=== PATIENT | female | born 1985 | race Caucasian/White ===

== ENCOUNTER 2022-09-05 21:19 | Emergency (ER) | payer MEDICAID ==
[~2022-09-05] VITALS: Ht 162.6 cm; Wt 103.7 kg
[2022-09-05 23:07] VITALS: BP 139/94
[2022-09-06] MEDS ORDERED: DIPH25CA83 MT (01:36)
[2022-09-06] MEDS ORDERED: CEPH500T MT (01:36)
== END 2022-09-06 01:49 | disposition home or self-care (01) ==
LOC: ER 21:19
DX: L03.311 Cellulitis of abdominal wall (principal); B35.6 Tinea cruris
CPT/HCPCS: 99281

== ENCOUNTER 2024-09-29 18:40 | Emergency (ER) | payer MEDICAID, OTHER ==
[~2024-09-29] VITALS: Ht 162.6 cm; Wt 102.0 kg
[~2024-09-29 18:40] MED LIST: CEPH500T MT; DIPH25CA83 MT
[2024-09-29 19:03] VITALS: TEMP 36.72516; O2SAT 99
[2024-09-29 19:06] VITALS: BP 151/100; PULSE 95; RESP 18; TEMP 98.6; O2SAT 99
[2024-09-29 21:20] LABS: BASOPHILS % 1.2 % (0.0-2.0); EOSINOPHILS % 2.3 % (0.0-5.0); HEMATOCRIT. 43.6 % (36.0-48.0); HEMOGLOBIN. 14.9 g/dL (12.0-16.0); LYMPHOCYTES % 28.3 % (20.0-50.0); MEAN CORPUSCULAR HEMOGLOBIN 30.1 pg (28.0-32.0); MEAN CORPUSCULAR HGB CONC 34.2 g/dL (31.0-37.0); MEAN CORPUSCULAR VOLUME 88.1 fL (81.0-99.0); MEAN PLATELET VOLUME 8.5 fl (7.4-10.4); MONOCYTES % 7.9 % (2.0-8.0); NEUTROPHILS % 60.3 % (40.0-76.0); PLATELET 322 x1000/uL (130-400); RED BLOOD CELL COUNT 4.96 mill/uL (4.2-5.4); WHITE BLOOD COUNT 9.2 x1000/uL (4.5-11.0)
[2024-09-29 21:22] LABS: DIFFERENTIAL COMMENT 1
[2024-09-29 21:23] LABS: CLARITY URINE TURBID (CLEAR); COLOR URINE ORANGE (YELLOW); GLUCOSE URINE NEGATIVE (NEGATIVE); KETONES URINE NEGATIVE (NEGATIVE); LEUKOCYTE ESTERASE URINE 1+ (NEGATIVE); NITRITE URINE NEGATIVE (NEGATIVE); OCCULT BLOOD URINE 3+ (NEGATIVE); PROTEIN URINE 1+ (NEGATIVE); SPECIFIC GRAVITY URINE 1.039 (1.005-1.030)
[2024-09-29 21:27] LABS: D-DIMER 3.03 mg/L FEU (<0.50); INR 0.9; PROTHROMBIN TIME 9.7 sec (9.6-11.0)
[2024-09-29 21:29] LABS: CHLORIDE 107 mEq/L (98-107); POTASSIUM 3.6 mEq/L (3.5-5.1); SODIUM 139 mEq/L (136-145)
[2024-09-29 21:30] LABS: CALCIUM 9.7 mg/dL (8.7-10.4); CARBON DIOXIDE 22 mEq/L (21-32)
[2024-09-29 21:33] LABS: HCG SCREEN NEGATIVE
[2024-09-29 21:35] LABS: BACTERIA URINE 2+; RBC URINE 15-25 /hpf (0-2); SQUAMOUS EPITHELIAL CELL URINE 2+ /lpf (RARE/1+)
[2024-09-29 21:35] LABS: CREATININE 0.9 mg/dL (0.6-1.0); GLUCOSE 82 mg/dL (70-105); UREA NITROGEN BLOOD 14 mg/dL (9-23)
[2024-09-29 21:36] LABS: TROPONIN I HIGH SENSITIVITY < 4 ng/L (3.0-34)
[2024-09-29 21:37] LABS: ALANINE AMINOTRANSFERASE 15 IU/L (10-49); ALBUMIN 4.9 g/dL (3.2-4.8); ASPARTATE AMINOTRANSFERASE 17 IU/L (<34); BILIRUBIN DIRECT 0.1 mg/dL (<=3.0); BILIRUBIN TOTAL 0.6 mg/dL (0.1-1.0); PROTEIN TOTAL 7.7 g/dL (6.0-8.3)
[2024-09-29 21:39] LABS: T4 FREE 1.01 ng/dL (0.89-1.76); THYROID STIMULATING HORMONE 3.43 uIU/mL (0.55-4.78)
[2024-09-30] MEDS ORDERED: CEPH250C2 MT (02:14)
[2024-09-30] MEDS ORDERED: CEFTRIAXONE 1GM/50ML 50 ML IV ONE (02:15)
[2024-09-30] MEDS ORDERED: IOHEXOL-350 100 ML BOTTLE ONE (03:20)
== END 2024-09-30 02:32 | disposition home or self-care (01) ==
LOC: ER 18:40
DX: N39.0 Urinary tract infection, site not specified (principal); R51.9 Headache, unspecified; I10 Essential (primary) hypertension; F32.A Depression, unspecified; R00.2 Palpitations
CPT/HCPCS: 99285; 71045; 80076; 80048; 81003; 84703; 83880; 84439; 83735; 84443; 85025; 85379; 85610; 84484; 36415; 93005; 71275; Q9967